=== PATIENT | female | born 1960 | race Caucasian/White ===

== ENCOUNTER → 2018-06-20 | Outpatient (CLI) | payer OTHER ==
[~2018-06-20] MED LIST: BUDEPRION SR150 MG PO; DEXILANT30 MG PO; JANUVIA50 MG PO; LOSARTAN POTASS50 M1 PO; MELOXICAM7.5 MG PO; PLAQUENIL200 MG PO; SINGULAIR10 MG PO; TRIAMTERENE/HCT1 CAP PO; XANAX0.5 MG PO
--- NOTE | ~2018-06-20 | EKG ---
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
[2018-06-20 11:57] LABS: BILIRUBIN NEGATIVE (NEGATIVE); BLOOD NEGATIVE (NEGATIVE); CLARITY SL CLOUDY (CLEAR); COLOR YELLOW (YELLOW); GLUCOSE NEGATIVE (NEGATIVE); KETONE NEGATIVE (NEGATIVE); LEUKO ESTERASE NEGATIVE (NEGATIVE); NITRITE NEGATIVE (NEGATIVE); UROBILINOGEN 0.2 E.U./dl (0.2-1.0)
[2018-06-20 12:03] LABS: BASO # 0.1 10*3/uL (0.0-0.1); BASO % 1.4 % (0.0-1.0); EOS # 0.6 10*3/uL (0.0-0.4); EOS % 12.6 % (1.0-4.0); HEMATOCRIT 40.6 % (37.0-47.0); HEMOGLOBIN 13.1 g/dl (12.0-16.0); LYMPH # 1.8 10*3/uL (1.3-4.4); LYMPH % 36.2 % (27.0-41.0); MEAN CELL VOLUME 95.8 fl (81.0-99.0); MEAN CORPUSCULAR HGB 30.9 pg (27.0-31.0); MEAN CORPUSCULAR HGB CONC 32.3 g/dl (33.0-37.0); MONO # 0.4 10*3/uL (0.1-1.0); MONO % 8.3 % (3.0-9.0); NEUT % 41.3 % (47.0-73.0); PLATELET COUNT AUTOMATED 193 10*3/uL (130-400); RED BLOOD COUNT 4.24 10*6/uL (4.10-5.10); RED CELL DISTRI WIDTH 13.2 % (0-14.5); WHITE BLOOD COUNT 4.9 10*3/uL (4.8-10.8)
[2018-06-20 12:19] LABS: BACTERIA TRACE; EPITHELIAL CELLS 0-2; WBC 0-2 wbc/hpf (0-5)
[2018-06-20 12:42] LABS: ALBUMIN 3.4 gm/dl (3.1-4.5); BUN 16 mg/dl (7-24); CHLORIDE 104 mmol/L (98-107); CREATININE 0.69 mg/dL (0.55-1.02); POTASSIUM 4.1 mmol/L (3.5-5.1); SGOT/AST 15 IU/L (3-35); SGPT/ALT 26 U/L (12-78); SODIUM 139 mmol/L (136-145)
[2018-06-20 12:43] LABS: ALKALINE PHOSPHATASE 60 U/L (45-117); TOTAL PROTEIN 6.4 gm/dL (6.4-8.2)
[2018-06-20 12:46] LABS: ACT PARTIAL THROMBO TIME 21.9 SECONDS (20.8-31.5); INTERNATIONAL NORM RATIO 0.9 (2.0-3.5)
== END | disposition home or self-care (01) ==
LOC: LAB 10:50
PROVIDERS: Orthopaedic Surgery
DX: Z01.818 Encounter for other preprocedural examination (principal); E11.9 Type 2 diabetes mellitus without complications; M19.90 Unspecified osteoarthritis, unspecified site; Z79.899 Other long term (current) drug therapy

== ENCOUNTER → 2019-03-26 | Outpatient (CLI) | payer OTHER ==
[2019-03-26 16:07] LABS: BASO # 0.1 10*3/uL (0.0-0.1); EOS # 0.5 10*3/uL (0.0-0.4); EOS % 9.3 % (1.0-4.0); HEMATOCRIT 41.3 % (37.0-47.0); HEMOGLOBIN 13.8 g/dl (12.0-16.0); LYMPH # 1.7 10*3/uL (1.3-4.4); LYMPH % 34.1 % (27.0-41.0); MEAN CELL VOLUME 94.7 fl (81.0-99.0); MEAN CORPUSCULAR HGB 31.7 pg (27.0-31.0); MEAN CORPUSCULAR HGB CONC 33.4 g/dl (33.0-37.0); MEAN PLATELET VOLUME 9.6 fl (9.6-12.3); MONO # 0.4 10*3/uL (0.1-1.0); MONO % 7.3 % (3.0-9.0); NEUT # 2.4 10*3/uL (2.3-7.9); NEUT % 48.1 % (47.0-73.0); PLATELET COUNT AUTOMATED 195 10*3/uL (130-400); RED BLOOD COUNT 4.36 10*6/uL (4.10-5.10); RED CELL DISTRI WIDTH 12.8 % (0-14.5); WHITE BLOOD COUNT 5.1 10*3/uL (4.8-10.8)
[2019-03-26 16:22] LABS: ALBUMIN 3.9 gm/dl (3.1-4.5); ALKALINE PHOSPHATASE 61 U/L (45-117); BUN 17 mg/dl (7-24); CHLORIDE 105 mmol/L (98-107); CHOLESTEROL 192 mg/dL (<200); CREATININE 0.89 mg/dL (0.55-1.02); FREE T4 0.88 ng/dl (0.76-1.46); HDL CHOLESTEROL 54 mg/dl (40-60); LDL CHOLESTEROL 110 mg/dL (9-159); POTASSIUM 3.6 mmol/L (3.5-5.1); SGOT/AST 15 IU/L (3-35); SGPT/ALT 20 U/L (12-78); SODIUM 138 mmol/L (136-145); TOTAL PROTEIN 6.7 gm/dL (6.4-8.2); TRIGLYCERIDES 139 mg/dl (<150); VLDL CHOLESTEROL 28 mg/dL (6-40)
[2019-03-26 16:30] LABS: VITAMIN D, 25-HYDROXY 35.1 ng/mL (30-100)
== END | disposition home or self-care (01) ==
LOC: LAB 14:12
PROVIDERS: Internal Medicine
DX: Z13.1 Encounter for screening for diabetes mellitus (principal); Z13.21 Encounter for screening for nutritional disorder; Z13.220 Encounter for screening for lipoid disorders; E53.8 Deficiency of other specified B group vitamins; I10 Essential (primary) hypertension

== ENCOUNTER → 2019-11-27 | Outpatient (CLI) | payer OTHER | END | disposition home or self-care (01) | LOC: LAB 07:38 → CT 09:00 | PROVIDERS: Internal Medicine | DX: R05 Cough (principal); R06.02 Shortness of breath ==

== ENCOUNTER 2020-01-14 17:05 | Emergency (ER) | payer OTHER ==
[~2020-01-14] VITALS: Ht 167.6 cm; Wt 104.3 kg
[2020-01-14 17:43] LABS: BASO # 0.1 10*3/uL (0.0-0.1); EOS # 0.4 10*3/uL (0.0-0.4); EOS % 4.5 % (1.0-4.0); HEMATOCRIT 42.3 % (37.0-47.0); LYMPH # 2.2 10*3/uL (1.3-4.4); MEAN CELL VOLUME 96.1 fl (81.0-99.0); MEAN CORPUSCULAR HGB 30.7 pg (27.0-31.0); MEAN CORPUSCULAR HGB CONC 31.9 g/dl (33.0-37.0); MEAN PLATELET VOLUME 8.9 fl (9.6-12.3); MONO # 0.7 10*3/uL (0.1-1.0); MONO % 8.3 % (3.0-9.0); NEUT # 4.7 10*3/uL (2.3-7.9); PLATELET COUNT AUTOMATED 213 10*3/uL (130-400); RED CELL DISTRI WIDTH 13.1 % (0-14.5)
[2020-01-14 17:49] LABS: BACTERIA 3+; BILIRUBIN NEGATIVE (NEGATIVE); BLOOD 3+ (NEGATIVE); CLARITY CLOUDY (CLEAR); COLOR YELLOW (YELLOW); GLUCOSE NEGATIVE (NEGATIVE); KETONE NEGATIVE (NEGATIVE); LEUKO ESTERASE 3+ (NEGATIVE); NITRITE NEGATIVE (NEGATIVE); UROBILINOGEN 0.2 E.U./dl (0.2-1.0); WBC 51-100 wbc/hpf (0-5)
[2020-01-14] MEDS ORDERED: SEPTDS PO ×2 (17:56→18:18)
[2020-01-14] MEDS ORDERED: PYRIDIUM100 MG PO ×2 (17:57→18:18)
[2020-01-14 18:01] LABS: ALBUMIN 3.8 gm/dl (3.1-4.5); ALKALINE PHOSPHATASE 60 U/L (45-117); BUN 15 mg/dl (7-24); CHLORIDE 107 mmol/L (98-107); CREATININE 0.78 mg/dL (0.55-1.02); POTASSIUM 4.2 mmol/L (3.5-5.1); SGOT/AST 11 IU/L (3-35); SGPT/ALT 24 U/L (12-78); SODIUM 138 mmol/L (136-145)
[2020-01-14 18:05] LABS: TROPONIN I < 0.015 ng/ml (<0.045)
== END 2020-01-14 18:14 | disposition home or self-care (01) ==
LOC: ED 17:05
PROVIDERS: Nurse Practitioner Family
DX: N39.0 Urinary tract infection, site not specified (principal); J45.909 Unspecified asthma, uncomplicated; K21.9 Gastro-esophageal reflux disease without esophagitis; E11.9 Type 2 diabetes mellitus without complications; Z88.5 Allergy status to narcotic agent; Z88.8 Allergy status to other drugs, medicaments and biological substances; Z79.899 Other long term (current) drug therapy

== ENCOUNTER → 2020-02-03 | Outpatient (CLI) | payer OTHER ==
[~2020-02-03] MED LIST changes: +PYRIDIUM100 MG PO; +SEPTDS PO
== END | disposition home or self-care (01) ==
LOC: US 14:21
DX: R31.9 Hematuria, unspecified (principal)

== ENCOUNTER → 2020-04-21 | Outpatient (CLI) | payer OTHER | END | disposition home or self-care (01) | LOC: RAD 12:35 | PROVIDERS: ATTEND Internal Medicine Pulmonary Disease | DX: R05 Cough (principal); R06.00 Dyspnea, unspecified ==

== ENCOUNTER → 2020-05-07 | Outpatient (CLI) | payer OTHER | END | disposition home or self-care (01) | LOC: CT 14:55 | PROVIDERS: ATTEND Internal Medicine | DX: J32.1 Chronic frontal sinusitis (principal); J32.2 Chronic ethmoidal sinusitis; J32.3 Chronic sphenoidal sinusitis ==

== ENCOUNTER → 2020-07-23 | Outpatient (CLI) | payer OTHER ==
[~2020-07-23] MED LIST changes: +AUGMENTIN 875875 MG PO; +B-122500 MCG SL; +CALTRATE 600 +1 EACH PO; +COLACE100 MG PO; +FLINTSTONES M300 MCG PO; +Ipratropium Brom3 ML INH; +MELATONIN10 M2 PO; +PREDNISONE5 MG PO; +PROTONIX40 MG PO; +PROVENTIL HFA6.7 GM INH; +TESSALON PERLE100 MG PO; +WELLBUTRIN XL300 MG PO; +ZITHROMAX250 MG PO
== END | disposition home or self-care (01) ==
LOC: COVID19 12:24
PROVIDERS: ATTEND Internal Medicine
DX: U07.1 COVID-19 (principal)

== ENCOUNTER 2020-08-04 17:41 | Emergency (ER) | payer OTHER ==
[~2020-08-04] VITALS: Ht 165.1 cm; Wt 99.8 kg
[~2020-08-04 17:41] MED LIST changes: -AUGMENTIN 875875 MG PO; -B-122500 MCG SL; -CALTRATE 600 +1 EACH PO; -COLACE100 MG PO; -FLINTSTONES M300 MCG PO; -Ipratropium Brom3 ML INH; -MELATONIN10 M2 PO; -PREDNISONE5 MG PO; -PROTONIX40 MG PO; -PROVENTIL HFA6.7 GM INH; -TESSALON PERLE100 MG PO; -WELLBUTRIN XL300 MG PO; -ZITHROMAX250 MG PO
[2020-08-04 18:49] LABS: BASO % 0.2 % (0.0-1.0); EOS # 0.2 10*3/uL (0.0-0.4); HEMATOCRIT 41.1 % (37.0-47.0); LYMPH # 0.7 10*3/uL (1.3-4.4); LYMPH % 11.8 % (27.0-41.0); MEAN CELL VOLUME 90.1 fl (81.0-99.0); MEAN CORPUSCULAR HGB CONC 33.3 g/dl (33.0-37.0); MEAN PLATELET VOLUME 8.4 fl (9.6-12.3); MONO # 0.4 10*3/uL (0.1-1.0); NEUT # 4.9 10*3/uL (2.3-7.9); NEUT % 77.4 % (47.0-73.0); PLATELET COUNT AUTOMATED 344 10*3/uL (130-400); RED BLOOD COUNT 4.56 10*6/uL (4.10-5.10); RED CELL DISTRI WIDTH 12.4 % (0-14.5); WHITE BLOOD COUNT 6.3 10*3/uL (4.8-10.8)
[2020-08-04 19:05] LABS: ALKALINE PHOSPHATASE 67 U/L (45-117); BUN 12 mg/dl (7-24); CHLORIDE 106 mmol/L (98-107); CREATININE 0.79 mg/dL (0.55-1.02); POTASSIUM 3.4 mmol/L (3.5-5.1); SGOT/AST 15 IU/L (3-35); SGPT/ALT 20 U/L (12-78); SODIUM 140 mmol/L (136-145); TOTAL PROTEIN 7.3 gm/dL (6.4-8.2)
[2020-08-04 19:06] LABS: TROPONIN I < 0.015 ng/ml (<0.045)
[2020-08-04] MEDS ORDERED: ZITHROMAX250 MG PO ×2 (23:38)
== END 2020-08-05 00:19 | disposition left against medical advice (07) ==
LOC: ED 17:41
PROVIDERS: Physician Assistant
DX: U07.1 COVID-19 (principal); J12.82 Pneumonia due to coronavirus disease 2019; R19.7 Diarrhea, unspecified; J45.909 Unspecified asthma, uncomplicated; E11.9 Type 2 diabetes mellitus without complications; M06.9 Rheumatoid arthritis, unspecified; Z88.5 Allergy status to narcotic agent; Z88.8 Allergy status to other drugs, medicaments and biological substances; Z79.2 Long term (current) use of antibiotics; Z79.899 Other long term (current) drug therapy; Z53.29 Procedure and treatment not carried out because of patient's decision for other reasons

== ENCOUNTER → 2020-08-21 | Outpatient (CLI) | payer OTHER ==
[~2020-08-21] MED LIST changes: +AUGMENTIN 875875 MG PO; +B-122500 MCG SL; +CALTRATE 600 +1 EACH PO; +COLACE100 MG PO; +FLINTSTONES M300 MCG PO; +Ipratropium Brom3 ML INH; +MELATONIN10 M2 PO; +PREDNISONE5 MG PO; +PROTONIX40 MG PO; +PROVENTIL HFA6.7 GM INH; +TESSALON PERLE100 MG PO; +WELLBUTRIN XL300 MG PO; +ZITHROMAX250 MG PO
== END | disposition home or self-care (01) ==
LOC: RAD 09:34
PROVIDERS: ATTEND Internal Medicine
DX: R06.02 Shortness of breath (principal)

== ENCOUNTER 2020-08-26 11:32 | Observation (INO) | payer OTHER ==
[~2020-08-26] VITALS: Ht 167.6 cm; Wt 111.6 kg
[~2020-08-26 11:32] MED LIST changes: -AUGMENTIN 875875 MG PO; -B-122500 MCG SL; -CALTRATE 600 +1 EACH PO; -COLACE100 MG PO; -FLINTSTONES M300 MCG PO; -Ipratropium Brom3 ML INH; -MELATONIN10 M2 PO; -PREDNISONE5 MG PO; -PROTONIX40 MG PO; -PROVENTIL HFA6.7 GM INH; -TESSALON PERLE100 MG PO; -WELLBUTRIN XL300 MG PO
[2020-08-26 11:48] VITALS: BP 151/86
[2020-08-26 12:44] LABS: BASO # 0.1 10*3/uL (0.0-0.1); BASO % 1.1 % (0.0-1.0); EOS # 0.6 10*3/uL (0.0-0.4); EOS % 7.7 % (1.0-4.0); HEMATOCRIT 36.4 % (37.0-47.0); LYMPH # 2.9 10*3/uL (1.3-4.4); LYMPH % 39.3 % (27.0-41.0); MEAN CELL VOLUME 96.6 fl (81.0-99.0); MEAN PLATELET VOLUME 8.5 fl (9.6-12.3); MONO # 0.6 10*3/uL (0.1-1.0); MONO % 8.8 % (3.0-9.0); NEUT # 3.1 10*3/uL (2.3-7.9); NEUT % 42.1 % (47.0-73.0); PLATELET COUNT AUTOMATED 240 10*3/uL (130-400); RED BLOOD COUNT 3.77 10*6/uL (4.10-5.10); RED CELL DISTRI WIDTH 14.4 % (0-14.5); WHITE BLOOD COUNT 7.3 10*3/uL (4.8-10.8)
[2020-08-26 12:55] LABS: ACT PARTIAL THROMBO TIME 22.4 SECONDS (20.0-32.1); INTERNATIONAL NORM RATIO 0.9 (2.0-3.5)
[2020-08-26 13:01] LABS: ALBUMIN 3.2 gm/dl (3.1-4.5); ALKALINE PHOSPHATASE 58 U/L (45-117); BUN 13 mg/dl (7-24); CHLORIDE 107 mmol/L (98-107); CREATININE 0.67 mg/dL (0.55-1.02); POTASSIUM 3.8 mmol/L (3.5-5.1); SGOT/AST 10 IU/L (3-35); SGPT/ALT 20 U/L (12-78); SODIUM 142 mmol/L (136-145); TOTAL PROTEIN 6.3 gm/dL (6.4-8.2)
[2020-08-26 13:02] LABS: TROPONIN I < 0.015 ng/ml (<0.045)
[2020-08-26 13:18] LABS: BILIRUBIN Negative (Negative); BLOOD Negative (Negative); CLARITY Clear (Clear); COLOR Yellow (Yellow); GLUCOSE Negative (Negative); KETONE Negative (Negative); LEUKO ESTERASE Negative (Negative); NITRITE Negative (Negative); PH 5.5 (4.5-8.0); UROBILINOGEN 0.2 E.U./dl (0.0-1.0)
[2020-08-26 13:28] LABS: RBC 0-2 rbc/hpf (0-2)
[2020-08-26] MEDS ORDERED: PROVENTIL HFA6.7 GM INH (14:17)
[2020-08-26] MEDS ORDERED: AUGMENTIN 875875 MG PO (14:18)
[2020-08-26 14:21] VITALS: BP 135/62
[2020-08-26 16:21] VITALS: BP 146/65
[2020-08-26 18:40] VITALS: BP 112/76
[2020-08-26] MEDS ORDERED: Ipratropium Brom3 ML INH (19:26)
[2020-08-26 20:36] VITALS: BP 121/58
[2020-08-26] MEDS ORDERED: WELLBUTRIN XL300 MG PO (22:00)
[2020-08-26] MEDS ORDERED: COLACE100 MG PO (22:02)
[2020-08-26] MEDS ORDERED: FLINTSTONES M300 MCG PO (22:02)
[2020-08-26] MEDS ORDERED: B-122500 MCG SL (22:03)
[2020-08-26] MEDS ORDERED: MELATONIN10 M2 PO (22:03)
[2020-08-26] MEDS ORDERED: CALTRATE 600 +1 EACH PO (22:04)
[2020-08-26] MEDS ORDERED: PROTONIX40 MG PO (22:36)
[2020-08-26] MEDS ORDERED: TESSALON PERLE100 MG PO (22:37)
[2020-08-27] VITALS: BP 113/68
[2020-08-27 08:00] VITALS: BP 117/62
[2020-08-27] MEDS ORDERED: PREDNISONE5 MG PO (08:04)
[2020-08-27 12:00] VITALS: BP 134/72
== END 2020-08-27 16:00 | disposition home or self-care (01) ==
LOC: ED 11:32 → EDHOLD 13:40 → 4E 20:20
PROVIDERS: Emergency Medicine; ADMIT Internal Medicine; ATTEND Internal Medicine
DX: R07.2 Precordial pain (principal); J96.91 Respiratory failure, unspecified with hypoxia; J84.9 Interstitial pulmonary disease, unspecified; F41.1 Generalized anxiety disorder; E66.01 Morbid (severe) obesity due to excess calories; I10 Essential (primary) hypertension; M06.9 Rheumatoid arthritis, unspecified; Z86.16 Personal history of COVID-19; Z68.41 Body mass index [BMI] 40.0-44.9, adult

== ENCOUNTER → 2021-04-06 | Outpatient (CLI) | payer OTHER ==
[~2021-04-06] MED LIST changes: +AUGMENTIN 875875 MG PO; +B-122500 MCG SL; +CALTRATE 600 +1 EACH PO; +COLACE100 MG PO; +FLINTSTONES M300 MCG PO; +Ipratropium Brom3 ML INH; +MELATONIN10 M2 PO; +PREDNISONE5 MG PO; +PROTONIX40 MG PO; +PROVENTIL HFA6.7 GM INH; +TESSALON PERLE100 MG PO; +WELLBUTRIN XL300 MG PO
[2021-04-06 18:50] LABS: THYROID STIM HORMONE (HS) 2.44 uIU/ml (0.358-4.75)
[2021-04-06 19:48] LABS: FERRITIN 99.9 ng/mL (10.0-291.0); VITAMIN D, 25-HYDROXY 34.9 ng/mL (30-100)
[2021-04-06 19:49] LABS: PTH INTACT 72.2 pg/mL (18.5-88.0)
== END | disposition home or self-care (01) ==
LOC: LAB 17:32
PROVIDERS: ATTEND Specialist
DX: K91.2 Postsurgical malabsorption, not elsewhere classified (principal); Z90.3 Acquired absence of stomach [part of]

== ENCOUNTER → 2022-05-03 | Outpatient (CLI) | payer BC | END | disposition home or self-care (01) | LOC: CT 09:00 | PROVIDERS: ATTEND Internal Medicine | DX: J32.4 Chronic pansinusitis (principal); J45.20 Mild intermittent asthma, uncomplicated; I25.10 Atherosclerotic heart disease of native coronary artery without angina pectoris; K44.9 Diaphragmatic hernia without obstruction or gangrene ==

== ENCOUNTER → 2022-07-08 | Outpatient (CLI) | payer BC ==
[~2022-07-08] MED LIST changes: +BREO ELLIPTA 11 EACH INH; +LASIX20 MG PO; +PREVACID15 M2 PO; +TOPROL XL100 MG PO
== END | disposition home or self-care (01) ==
LOC: CARD 01:27
PROVIDERS: ATTEND Internal Medicine
DX: R07.9 Chest pain, unspecified (principal); I25.84 Coronary atherosclerosis due to calcified coronary lesion

== ENCOUNTER 2022-09-05 09:13 | Emergency (ER) | payer BC ==
[~2022-09-05] VITALS: Ht 167.6 cm; Wt 117.9 kg
[2022-09-05 09:56] LABS: BASO # 0.1 10*3/uL (0.0-0.1); BASO % 1.2 % (0.0-1.0); EOS # 0.3 10*3/uL (0.0-0.4); EOS % 5.6 % (1.0-4.0); LYMPH # 1.8 10*3/uL (1.3-4.4); LYMPH % 29.6 % (27.0-41.0); MEAN CELL VOLUME 98.2 fl (81.0-99.0); MEAN CORPUSCULAR HGB 31.1 pg (27.0-31.0); MEAN CORPUSCULAR HGB CONC 31.6 g/dl (33.0-37.0); MEAN PLATELET VOLUME 8.9 fl (9.6-12.3); MONO # 0.6 10*3/uL (0.1-1.0); MONO % 9.6 % (3.0-9.0); NEUT # 3.2 10*3/uL (2.3-7.9); NEUT % 53.7 % (47.0-73.0); PLATELET COUNT AUTOMATED 217 10*3/uL (130-400); RED BLOOD COUNT 4.38 10*6/uL (4.10-5.10); RED CELL DISTRI WIDTH 13.1 % (0-14.5)
[2022-09-05 10:08] LABS: ALKALINE PHOSPHATASE 65 U/L (46-116); BUN 17 mg/dl (9-23); CHLORIDE 105 mmol/L (98-107); POTASSIUM 3.7 mmol/L (3.4-5.1); SGPT/ALT 21 U/L (10-49); TOTAL PROTEIN 6.6 gm/dL (6.0-8.0)
[2022-09-05] MEDS ORDERED: LISINOPRIL5 MG PO (10:50)
== END 2022-09-05 13:01 | disposition home or self-care (01) ==
LOC: ED 09:13
PROVIDERS: Internal Medicine
DX: I10 Essential (primary) hypertension (principal); J45.909 Unspecified asthma, uncomplicated; E11.9 Type 2 diabetes mellitus without complications; Z88.5 Allergy status to narcotic agent; Z88.8 Allergy status to other drugs, medicaments and biological substances; Z96.652 Presence of left artificial knee joint; Z98.890 Other specified postprocedural states

== ENCOUNTER → 2023-05-04 | Outpatient (CLI) | payer BC ==
[~2023-05-04] MED LIST changes: +LISINOPRIL5 MG PO
== END | disposition home or self-care (01) ==
LOC: LAB 12:19
PROVIDERS: ATTEND Internal Medicine
DX: R05.9 Cough, unspecified (principal)

== ENCOUNTER → 2023-08-09 | Outpatient (CLI) | payer OTHER | END | disposition home or self-care (01) | LOC: US 14:00 | PROVIDERS: ATTEND Internal Medicine | DX: R60.9 Edema, unspecified (principal) ==

== ENCOUNTER → 2023-08-23 | Outpatient (CLI) | payer OTHER | END | disposition home or self-care (01) | LOC: RESCLI 03:45 | PROVIDERS: ATTEND Internal Medicine | DX: J44.9 Chronic obstructive pulmonary disease, unspecified (principal); F43.23 Adjustment disorder with mixed anxiety and depressed mood; K21.9 Gastro-esophageal reflux disease without esophagitis; I10 Essential (primary) hypertension; M06.9 Rheumatoid arthritis, unspecified; E11.9 Type 2 diabetes mellitus without complications; J45.909 Unspecified asthma, uncomplicated; Z79.899 Other long term (current) drug therapy; Z90.49 Acquired absence of other specified parts of digestive tract; Z98.890 Other specified postprocedural states ==

== ENCOUNTER → 2023-09-30 | Outpatient (CLI) | payer OTHER ==
[2023-09-30 08:57] LABS: BASO # 0.1 10*3/uL (0.0-0.1); BASO % 1.6 % (0.0-1.0); EOS # 0.4 10*3/uL (0.0-0.4); HEMATOCRIT 41.9 % (37.0-47.0); LYMPH # 1.6 10*3/uL (1.3-4.4); LYMPH % 31.2 % (27.0-41.0); MEAN CELL VOLUME 96.3 fl (81.0-99.0); MEAN CORPUSCULAR HGB 30.8 pg (27.0-31.0); MEAN PLATELET VOLUME 8.7 fl (9.6-12.3); MONO # 0.4 10*3/uL (0.1-1.0); MONO % 8.7 % (3.0-9.0); NEUT # 2.6 10*3/uL (2.3-7.9); NEUT % 51.1 % (47.0-73.0); PLATELET COUNT AUTOMATED 207 10*3/uL (130-400); RED BLOOD COUNT 4.35 10*6/uL (4.10-5.10); RED CELL DISTRI WIDTH 12.8 % (0-14.5)
[2023-09-30 09:25] LABS: ALKALINE PHOSPHATASE 68 U/L (46-116); BUN 19 mg/dl (9-23); CHLORIDE 107 mmol/L (98-107); CHOLESTEROL 272 mg/dL (<200); FREE T4 1.13 ng/dl (0.89-1.76); LDL CHOLESTEROL 182 mg/dL (9-159); SGPT/ALT 23 U/L (5-49); TOTAL PROTEIN 6.8 gm/dL (6.0-8.0); TRIGLYCERIDES 211 mg/dl (<150)
[2023-09-30 09:58] LABS: VITAMIN D, 25-HYDROXY 43.6 ng/mL (30-100)
== END | disposition home or self-care (01) ==
LOC: LAB 08:37
PROVIDERS: ATTEND Internal Medicine
DX: I10 Essential (primary) hypertension (principal); E11.9 Type 2 diabetes mellitus without complications; D51.9 Vitamin B12 deficiency anemia, unspecified